=== PATIENT | female | born 1985 | race Caucasian/White ===

== ENCOUNTER 2018-07-29 08:07 | Emergency (ER) | payer OTHER ==
[~2018-07-29] VITALS: Ht 170.2 cm; Wt 81.8 kg
[~2018-07-29 08:07] MED LIST: AZITHROMYCIN250 MG PO; BACTRIM DS1 TAB OR; FLEXERIL OR; LEVAQUIN750 MG PO; NAPROSYN500 MG OR; NO HOME MEDS; ORTHO TRI-CY OR; ORTHO TRI-CY PO; ORTHOTRYCYCLINE PO; PERCOCET 5/325M1 TAB OR; TRAMADOL HCL50 MG PO
[2018-07-29 08:15] VITALS: BP 128/83
[2018-07-29] MEDS ORDERED: DELTASONE20 MG PO (09:55)
[2018-07-29] MEDS ORDERED: ACULAR LS0.4 % OU (10:11)
== END 2018-07-29 10:12 | disposition home or self-care (01) ==
LOC: ED 08:07
DX: T78.40XA Allergy, unspecified, initial encounter (principal); X58.XXXA Exposure to other specified factors, initial encounter

== ENCOUNTER 2018-10-18 09:37 | Emergency (ER) | payer OTHER ==
[~2018-10-18] VITALS: Ht 170.2 cm; Wt 81.8 kg
[~2018-10-18 09:37] MED LIST changes: +ACULAR LS0.4 % OU; +DELTASONE20 MG PO
[2018-10-18 10:09] LABS: URINE BILIRUBIN - DIPSTICK NEGATIVE (NEGATIVE); URINE BLOOD DIPSTICK TRACE-INTACT (NEGATIVE); URINE COLOR YELLOW; URINE GLUCOSE - DIPSTICK NEGATIVE (NEGATIVE); URINE KETONE NEGATIVE (NEGATIVE); URINE LEUK ESTERASE SMALL (NEGATIVE); URINE NITRITE - DIPSTICK NEGATIVE (Negative); URINE PH 6.5 (4.5-8.0); URINE PROTEIN - DIPSTICK TRACE mg/dL (NEG-TRACE); URINE SPECIFIC GRAVITY 1.025; URINE UROBILINOGEN - DIPSTICK 0.2 E.U./dL (0.2)
[2018-10-18] MEDS ORDERED: OMNICEF300 M1 PO (10:25)
[2018-10-18 10:26] VITALS: BP 123/80
[2018-10-18 10:28] LABS: URINE BACTERIA FEW hpf; URINE SQUAMOUS EPITHELIAL CELL FEW EPI/hpf (0-FEW); URINE WBC 20-50 WBC/hpf (0-5)
[2018-10-18] MEDS ORDERED: DIFLUCAN100 M1 PO (10:28)
== END 2018-10-18 10:26 | disposition home or self-care (01) ==
LOC: ED 09:37
PROVIDERS: Family Medicine
DX: N39.0 Urinary tract infection, site not specified (principal)

== ENCOUNTER 2019-08-28 08:26 | Emergency (ER) | payer MEDICAID ==
[~2019-08-28] VITALS: Ht 170.2 cm; Wt 85.0 kg
[~2019-08-28 08:26] MED LIST changes: +DIFLUCAN100 M1 PO; +OMNICEF300 M1 PO
[2019-08-28] MEDS ORDERED: ZITHROMAX250 MG PO ×2 (09:04→09:27)
[2019-08-28 09:24] VITALS: BP 128/63
[2019-08-30] MEDS ORDERED: OMNICEF300 M1 PO (13:44)
[2019-08-30] MEDS ORDERED: PREDNISONE10 MG PO (13:44)
[2019-08-30] MEDS ORDERED: VALACYCLOVIR H500 M1 PO (13:50)
[2019-08-30] MEDS ORDERED: HYDROXYCHLOR200 M1 PO (13:50)
[2019-08-30] MEDS ORDERED: METHOTREXATE2.5 MG PO (13:51)
[2019-08-30] MEDS ORDERED: FOLIC ACID1 M1 PO (13:51)
[2019-08-30] MEDS ORDERED: IBUPROFEN600 MG PO (13:58)
== END 2019-08-28 09:29 | disposition home or self-care (01) ==
LOC: ED 08:26
DX: J02.0 Streptococcal pharyngitis (principal)

== ENCOUNTER 2020-02-23 | Emergency (ER) | payer MEDICAID ==
[~2020-02-23] MED LIST changes: +FOLIC ACID1 M1 PO; +HYDROXYCHLOR200 M1 PO; +IBUPROFEN600 MG PO; +METHOTREXATE2.5 MG PO; +PREDNISONE10 MG PO; +VALACYCLOVIR H500 M1 PO; +ZITHROMAX250 MG PO
[2020-02-23] MEDS ORDERED: COLCHICINE0.6 M2 PO (19:44)
[2020-02-23 20:25] LABS: HEMATOCRIT 42.4 % (37.0-47.0); HEMOGLOBIN 14.1 g/dl (12.0-16.0); IMMATURE GRANULOCYTES 0.5 % (0.0-5.0); MEAN CELL VOLUME 85.3 fL CALC (80.0-100.0); MEAN CORPUSCULAR HGB 28.4 pG CALC (26.0-32.0); MEAN CORPUSCULAR HGB CONC 33.3 g/dL CAL (32.0-36.0); NEUT# 11.71 thou/uL (2.00-7.15); RED BLOOD COUNT 4.97 mill/uL (4.20-5.60); RED CELL DISTRI WIDTH 12.5 % (11.5-15.5)
[2020-02-23 20:28] LABS: URINE BILIRUBIN - DIPSTICK NEGATIVE (NEGATIVE); URINE BLOOD DIPSTICK TRACE-INTACT (NEGATIVE); URINE COLOR YELLOW; URINE GLUCOSE - DIPSTICK NEGATIVE (NEGATIVE); URINE KETONE NEGATIVE (NEGATIVE); URINE LEUK ESTERASE NEGATIVE (NEGATIVE); URINE NITRITE - DIPSTICK NEGATIVE (Negative); URINE PH 7.5 (4.5-8.0); URINE PROTEIN - DIPSTICK NEGATIVE (NEG-TRACE); URINE SPECIFIC GRAVITY 1.015; URINE UROBILINOGEN - DIPSTICK 0.2 E.U./dL (0.2)
[2020-02-23 20:42] LABS: ALBUMIN 4.2 g/dL (3.2-5.0); ALKALINE PHOSPHATASE 70 u/l (38-126); ANION GAP 13 (6-22 (CALC)); BUN 7 mg/dL (7-17); BUN/CREATININE RATIO 9 (12-20 (CALC)); CARBON DIOXIDE 28 mmol/l (22-30); CHLORIDE 98 mmol/l (95-108); CREATININE 0.8 mg/dL (0.5-1.0); GFR > 60 ML/MIN (>=60 (CALC)); GFR FOR AFR.AMER. > 60 ML/MIN (>=60 (CALC)); SGOT/AST 15 u/l (14-36); SODIUM 135 mmol/l (137-146)
[2020-02-23 20:45] LABS: D-DIMER 0.44 mg/L (0.19-0.60)
[2020-02-23 20:52] LABS: BILIRUBIN, TOTAL 0.6 mg/dL (0.0-1.4)
[2020-02-23 20:59] LABS: ACT PARTIAL THROMBO TIME 26.8 SECONDS (20.0-32.5)
[2020-02-23 21:14] LABS: TSH, 3RD GENERATION 3.21 uIU/mL (0.47 - 4.68)
[2020-02-23] MEDS ORDERED: TRAMADOL HCL50 MG PO (21:21)
== END 2020-02-23 21:38 | disposition home or self-care (01) ==
PROVIDERS: Family Medicine
DX: R09.1 Pleurisy (principal); M35.9 Systemic involvement of connective tissue, unspecified

== ENCOUNTER 2023-06-01 12:36 | Emergency (ER) | payer MEDICAID ==
[~2023-06-01] VITALS: Ht 170.2 cm; Wt 86.2 kg
[~2023-06-01 12:36] MED LIST changes: +COLCHICINE0.6 M2 PO
[2023-06-01 14:46] VITALS: BP 120/82
[2023-06-01 15:00] VITALS: BP 120/83
[2023-06-01] MEDS ORDERED: KEFLEX500 MG PO (15:09)
[2023-06-01 15:16] VITALS: BP 108/74
[2023-06-01 15:25] VITALS: BP 108/74
== END 2023-06-01 15:26 | disposition home or self-care (01) ==
LOC: ED 12:36
DX: S61.303A Unspecified open wound of left middle finger with damage to nail, initial encounter (principal); W22.8XXA Striking against or struck by other objects, initial encounter; Y93.H2 Activity, gardening and landscaping; Y92.007 Garden or yard of unspecified non-institutional (private) residence as the place of occurrence of the external cause